=== PATIENT | male | born 1980 | race African-American/Black ===

== ENCOUNTER 2019-12-28 11:07 | Emergency (ER) | payer SELFPAY ==
--- NOTE | ~2019-12-28 | XR_ITS ---
XR knee LT min 4V 12/28/2019 12:15 Indication: Left knee pain Procedure: 4 views left knee Comparison: No prior studies for comparison. Findings: There is a large loose body anterior aspect of the joint space. Small effusion. No acute fr acture or traumatic malalignment. There is mild osteoarthritis of the left knee. Impression: 1: No acute fracture. 2: Small effusion. 3: Mild osteoarthritis. Large loose body anterior joint space of the knee. Reviewed, dictated and finalized at location A. Impression: 1: No acute fracture. 2: Small effusion. 3: Mild osteoarthritis. Large loose body anterior joint space of the knee.
[2019-12-28 11:50] VITALS: BP 145/91; PULSE 69; RESP 16; TEMP 36; O2SAT 100
--- NOTE | 2019-12-28 13:24 | ED.LOWEXIN ---
HPI - Extremity Injury (Lower) General Chief Complaint: Extremity Injury, Lower Stated Complaint: L knee swollen/pain Time Seen by Provider: 12/28/19 11:48 Source: patient Mode of arrival: ambulatory Limitations: no limitations History of Present Illness HPI Narrative: Patient presents with chief complaint of intermittent left knee pain that has been present off and on for approximately 4 months. Patient states over the past few weeks he has noticed a pressure-like feeling. Patient denies any erythema, swelling or loss of range of motion. Patient states he was talking with a friend who mentioned the knee injection so he presented to the emergency department. Patient denies any direct trauma to the knee or prior fracture. Patient denies any other symptoms. Related Data Allergies Allergy/AdvReac Type Severity Reaction Status Date / Time No Known Allergies Allergy Verified 12/28/19 11:54 Review of Systems Review of Systems: Narrative: CONSTITUTIONAL: Denies fever, chills, or sweats. EYES: Denies visual changes, redness, or discharge. ENT: Denies rhinorrhea, congestion, sore throat, or otalgia. CARDIOVASCULAR: Denies chest pain, palpitations, or edema. RESPIRATORY: Denies cough or dyspnea. GASTROINTESTINAL: Denies abdominal pain, nausea, vomiting, or diarrhea. GENITOURINARY: Denies dysuria or hematuria. SKIN: Denies rash or itching. MUSCULOSKELETAL: Left knee pain denies back pain, or myalgia. NEUROLOGIC: Denies headache, numbness, dizziness, or weakness. PSYCHIATRIC: Denies anxiety or depression. PMFSH Past Medical History Medical History (Updated 12/28/19 @ 13:54 by Maryjane Farfan PA-C) Active medical problems: none Social History Social History (Updated 12/28/19 @ 13:28 by Maryjane Farfan PA-C) Smoking status: Never smoker Substance use: never Gender identity (if verbalized by the patient): Male Exam Narrative: Exam Narrative: GENERAL: Well-appearing, well-nourished, and in no acute distress. HEAD: Normocephalic, atraumatic. EYES: PERRLA and EOMI. ENT: Nares clear, no rhinorrhea or epistaxis. Mucous membranes moist. Oropharynx without tonsillar hypertrophy exudate or other lesions. Bilateral TMs pearly gordon nonbulging CHEST: Clear to auscultation. No respiratory distress. No wheezes rales or rhonchi HEART: Regular rate and rhythm. Normal peripheral pulses. EXTREMITIES: left knee: Normal range of motion. No appreciable edema. No erythema. SKIN: Warm, dry, no rash. NEURO: No focal deficits. Alert and oriented x3. PSYCH: Normal mood and affect. Course Vital Signs Vital signs: Vital Signs Temperature 96.8 F L 12/28/19 11:50 Pulse Rate 69 12/28/19 11:50 Respiratory Rate 16 12/28/19 11:50 Blood Pressure 145/91 H 12/28/19 11:50 Pulse Oximetry 100 12/28/19 11:50 Temperature 96.8 F L 12/28/19 11:50 Pulse Rate 69 12/28/19 11:50 Respiratory Rate 16 12/28/19 11:50 Blood Pressure 145/91 H 12/28/19 11:50 Pulse Oximetry 100 12/28/19 11:50 MDM - Extremity Injury (Lower) MDM Narrative Medical decision making narrative: Discussed with the patient the need to follow-up with applications specialist for further evaluation of tendons and ligaments and for joint effusion. Informed patient that we do not perform steroid injection into the knee. Patient is not in any distress at this time. Patient understands needs a follow-up with orthopedics for ligament evaluation and effusion. Patient denies any other needs or concerns. Imaging Data Radiologist's impression: ITS Impressions Knee X-Ray 12/28/19 12:24 Impression: 1: No acute fracture. 2: Small effusion. 3: Mild osteoarthritis. Large loose body anterior joint space of the knee. Discharge Plan Discharge Clinical Impression: Effusion of knee joint, left Patient Disposition: Home, Self-Care Condition: Stable Instructions: Antibiotic Form, Osteoarthritis (ED), Swollen Knee Joint (ED) Additional
== END 2019-12-28 14:26 | disposition home or self-care (01) ==
PROVIDERS: Emergency Provider Emergency Medicine; Referring Provider Internal Medicine
DX: M25.462 Effusion, left knee (principal); M17.12 Unilateral primary osteoarthritis, left knee
CPT/HCPCS: 73564; 99283